=== PATIENT | male | born 1950 | race African-American/Black ===

== ENCOUNTER 2017-05-03 11:21 | Emergency (ER) | payer MEDICARE, BC ==
[~2017-05-03] VITALS: Ht 175.3 cm; Wt 90.0 kg
[2017-05-03] MEDS ORDERED: FAMOTIDINE 20MG TABLET PO ONE (16:15)
[2017-05-03 16:33] VITALS: BP 137/81
== END 2017-05-03 17:11 | disposition home or self-care (01) ==
LOC: ER 12:33
DX: R10.13 Epigastric pain (principal); E11.9 Type 2 diabetes mellitus without complications; I10 Essential (primary) hypertension; Z88.5 Allergy status to narcotic agent
CPT/HCPCS: 99283

== ENCOUNTER 2017-06-07 13:25 | Emergency (ER) | payer MEDICARE, BC ==
[~2017-06-07] VITALS: Ht 172.7 cm; Wt 80.0 kg
[2017-06-07] MEDS ORDERED: FAMOTIDINE 20MG/2ML VIAL IV STA (14:53)
[2017-06-07] MEDS ORDERED: SODIUM CHLORIDE 0.9% 1,000 ML IV ONE (14:53)
[2017-06-07] MEDS ORDERED: MAGNESIUM/ALUMINUM HYDROXIDE/SIMETHICONE 30ML UDC PO STA (14:53)
[2017-06-07] MEDS ORDERED: ONDANSETRON HCL 4MG/2ML VIAL IV STA (14:53)
[2017-06-07 15:15] LABS: CHLORIDE 99 mEq/L (98-107)
[2017-06-07 15:16] LABS: BASOPHILS % 0.5 % (0.0-2.0); EOSINOPHILS % 3.5 % (0.0-5.0); HEMATOCRIT. 40.2 % (42.0-52.0); HEMOGLOBIN. 13.7 g/dL (14.0-18.0); MEAN CORPUSCULAR HEMOGLOBIN 33.8 pg (28.0-32.0); MEAN CORPUSCULAR VOLUME 99.4 fL (80.0-94.0); MEAN PLATELET VOLUME 8.4 fl (7.4-10.4); MONOCYTES % 6.3 % (2.0-8.0); NEUTROPHILS % 75.7 % (40.0-76.0); PLATELET 157 x1000/uL (130-400); RED BLOOD CELL COUNT 4.04 mill/uL (4.7-6.1); RED CELL DISTRIBUTION WIDTH 14.4 % (11.6-14.6)
[2017-06-07 15:25] LABS: CLARITY URINE TURBID (CLEAR); COLOR URINE DARK YELLOW (YELLOW); KETONES URINE TRACE (NEGATIVE); LEUKOCYTE ESTERASE URINE 3+ (NEGATIVE); NITRITE URINE NEGATIVE (NEGATIVE); OCCULT BLOOD URINE 2+ (NEGATIVE); PROTEIN URINE 2+ (NEGATIVE); SPECIFIC GRAVITY URINE 1.017 (1.005-1.030)
[2017-06-07 15:48] LABS: PROTHROMBIN TIME 10.6 sec (9.4-11.6)
[2017-06-07 18:12] VITALS: BP 144/89
== END 2017-06-07 18:13 | disposition home or self-care (01) ==
LOC: ER 13:25
DX: N39.0 Urinary tract infection, site not specified (principal); K21.9 Gastro-esophageal reflux disease without esophagitis; R14.2 Eructation; D64.9 Anemia, unspecified; I12.9 Hypertensive chronic kidney disease with stage 1 through stage 4 chronic kidney disease, or unspecified chronic kidney disease; N18.9 Chronic kidney disease, unspecified; E11.22 Type 2 diabetes mellitus with diabetic chronic kidney disease; E11.65 Type 2 diabetes mellitus with hyperglycemia; Z88.5 Allergy status to narcotic agent; Z88.8 Allergy status to other drugs, medicaments and biological substances; Z86.73 Personal history of transient ischemic attack (TIA), and cerebral infarction without residual deficits; Z87.442 Personal history of urinary calculi
CPT/HCPCS: 36415; 80053; 81003; 83690; 84484; 85025; 85610; 87077; 87086; 87186; 93005; 96361; 96374; 96375; 99285; J2405; J3490; J7030

== ENCOUNTER 2017-09-28 13:23 | Emergency (ER) | payer MEDICARE, BC ==
[~2017-09-28] VITALS: Ht 175.3 cm; Wt 89.0 kg
[2017-09-28 14:45] LABS: HEMATOCRIT. 36.6 % (42.0-52.0); HEMOGLOBIN. 11.8 g/dL (14.0-18.0); MEAN CORPUSCULAR HEMOGLOBIN 31.2 pg (28.0-32.0); MEAN CORPUSCULAR VOLUME 96.5 fL (80.0-94.0); MEAN PLATELET VOLUME 8.4 fl (7.4-10.4); PLATELET 141 x1000/uL (130-400); RED BLOOD CELL COUNT 3.79 mill/uL (4.7-6.1)
[2017-09-28 14:51] LABS: CHLORIDE 101 mEq/L (98-107)
[2017-09-28] MEDS ORDERED: SODIUM CHLORIDE 0.9% 1,000 ML IV ONE (15:15)
[2017-09-28] MEDS ORDERED: NALOXONE HCL 0.4 MG/ML 1ML VIAL IV ONE (15:15)
[2017-09-28 15:31] LABS: PLATELET ESTIMATE NORMAL
[2017-09-28 18:04] LABS: CLARITY URINE CLOUDY (CLEAR); COLOR URINE YELLOW (YELLOW); KETONES URINE NEGATIVE (NEGATIVE); LEUKOCYTE ESTERASE URINE 3+ (NEGATIVE); NITRITE URINE NEGATIVE (NEGATIVE); OCCULT BLOOD URINE 3+ (NEGATIVE); PH URINE 6.5 (4.5-8.0); PROTEIN URINE TRACE (NEGATIVE); SPECIFIC GRAVITY URINE 1.008 (1.005-1.030)
[2017-09-28 18:08] VITALS: BP 127/78
[2017-09-28 18:15] LABS: *AMPHETAMINES SCREEN URINE NEGATIVE (NEGATIVE); *BARBITURATES SCREEN URINE NEGATIVE (NEGATIVE); *BENZODIAZEPINES SCREEN URINE NEGATIVE (NEGATIVE); *COCAINE SCREEN URINE NEGATIVE (NEGATIVE); METHADONE URINE SCREEN NEGATIVE (NEGATIVE); OPIATES URINE SCREEN NEGATIVE (NEGATIVE)
[2017-09-28 18:16] LABS: CANNABINOID URINE SCREEN PRESUMTIVE POSITIVE (NEGATIVE); PHENCYCLIDINE URINE SCREEN NEGATIVE (NEGATIVE)
== END 2017-09-28 19:41 | disposition home or self-care (01) ==
LOC: ER 13:50
DX: T40.7X1A Poisoning by cannabis (derivatives), accidental (unintentional), initial encounter (principal); E11.649 Type 2 diabetes mellitus with hypoglycemia without coma; I10 Essential (primary) hypertension; Z86.73 Personal history of transient ischemic attack (TIA), and cerebral infarction without residual deficits; Z90.49 Acquired absence of other specified parts of digestive tract; Z88.6 Allergy status to analgesic agent; Z88.5 Allergy status to narcotic agent; Y92.89 Other specified places as the place of occurrence of the external cause
CPT/HCPCS: 36415; 80053; 80305; 81003; 82962; 85025; 87086; 93005; 96361; 96374; 99285; G0482; J2310

== ENCOUNTER 2017-11-02 17:16 | Inpatient (IN) | payer MEDICARE, BC ==
[~2017-11-02] VITALS: Ht 171.4 cm; Wt 93.5 kg
[2017-11-02 18:44] LABS: CHLORIDE 98 mEq/L (98-107)
[2017-11-02 18:46] LABS: BASOPHILS % 0.5 % (0.0-2.0); EOSINOPHILS % 2.2 % (0.0-5.0); HEMATOCRIT. 36.5 % (42.0-52.0); HEMOGLOBIN. 12.1 g/dL (14.0-18.0); LYMPHOCYTES % 19.6 % (20.0-50.0); MEAN CORPUSCULAR HEMOGLOBIN 32.3 pg (28.0-32.0); MEAN CORPUSCULAR VOLUME 97.1 fL (80.0-94.0); MEAN PLATELET VOLUME 9.7 fl (7.4-10.4); MONOCYTES % 7.1 % (2.0-8.0); NEUTROPHILS % 70.6 % (40.0-76.0); PLATELET 162 x1000/uL (130-400); RED BLOOD CELL COUNT 3.76 mill/uL (4.7-6.1); RED CELL DISTRIBUTION WIDTH 14.4 % (11.6-14.6)
[2017-11-02 18:48] LABS: PARTIAL THROMBOPLASTIN TIME 29.9 sec (23.4-31.0); PROTHROMBIN TIME 10.4 sec (9.1-11.1)
[2017-11-02] MEDS ORDERED: NA PHOS,M-B/NA PHOS,DI-BA ENEMA 118ML PR PRN (19:15)
[2017-11-02] MEDS ORDERED: DOCUSATE SODIUM 100MG CAPSULE PO PRN (19:15)
[2017-11-02] MEDS ORDERED: CLONIDINE 0.1MG TABLET PO PRN (19:15)
[2017-11-02] MEDS ORDERED: IPRATROPIUM/ALBUTEROL 0.5-3(2.5)MG/3ML NEB INH PRN (19:15)
[2017-11-02] MEDS ORDERED: GUAIFENESIN 200MG/10ML SUGAR FREE UDC PO PRN (19:15)
[2017-11-02] MEDS ORDERED: NITROGLYCERIN 0.4MG TABLET SL SL PRN (19:15)
[2017-11-02] MEDS ORDERED: LORAZEPAM 0.5MG TABLET PO PRN (19:15)
[2017-11-02] MEDS ORDERED: MAGNESIUM/ALUMINUM HYDROXIDE/SIMETHICONE 30ML UDC PO PRN (19:15)
[2017-11-02] MEDS ORDERED: FUROSEMIDE 20MG/2ML VIAL IVP ONE (19:15)
[2017-11-02] MEDS ORDERED: ACETAMINOPHEN 325MG TABLET PO PRN (19:15)
[2017-11-02] MEDS ORDERED: ONDANSETRON HCL 4MG/2ML INJ IV PRN (19:15)
[2017-11-02] MEDS ORDERED: DIPHENHYDRAMINE 50MG/ML VIAL IV PRN (19:15)
[2017-11-02] MEDS ORDERED: TRAMADOL 50MG TABLET PO PRN (19:15)
[2017-11-02] MEDS ORDERED: FUROSEMIDE 20MG/2ML VIAL IVP NR (19:30)
[2017-11-02 20:06] LABS: TOTAL IRON BINDING CAPACITY 344 ug/dL (250-450)
[2017-11-02 20:25] LABS: FOLIC ACID (FOLATE) SERUM 8.6 ng/mL (>5.38)
[2017-11-02 20:56] LABS: CLARITY URINE CLOUDY (CLEAR); COLOR URINE YELLOW (YELLOW); KETONES URINE NEGATIVE (NEGATIVE); LEUKOCYTE ESTERASE URINE 3+ (NEGATIVE); NITRITE URINE POSITIVE (NEGATIVE); OCCULT BLOOD URINE 3+ (NEGATIVE); PROTEIN URINE 1+ (NEGATIVE); SPECIFIC GRAVITY URINE 1.012 (1.005-1.030)
[2017-11-02] MEDS ORDERED: FUROSEMIDE 40MG/4ML VIAL IVP SCH (21:00)
[2017-11-02 21:25] VITALS: BP 162/96
[2017-11-02 21:30] VITALS: BP 162/96
[2017-11-02] MEDS ORDERED: DEXTROSE 50% WATER 50ML SYRINGE IV PRN (22:30)
[2017-11-02] MEDS: FAMOTIDINE 20MG TABLET PO SCH (22:51)
[2017-11-02] MEDS: ZOLPIDEM TARTRATE 5MG TABLET PO PRN (22:51)
[2017-11-02] MEDS: ENOXAPARIN 80MG/0.8ML SYR SUBCUT SCH (22:51)
[2017-11-02] MEDS: ASCORBIC ACID 500 MG TABLET PO SCH (22:52)
[2017-11-02] MEDS: SPIRONOLACTONE 25MG TABLET PO SCH (22:52)
[2017-11-02 23:49] VITALS: BP 143/93
[2017-11-03 00:50] LABS: CREATINE KINASE MB FRACTION 1.4 ng/mL (0.5-3.6)
[2017-11-03 04:00] VITALS: BP 148/71
[2017-11-03] MEDS: INSULIN LISPRO 100 UNITS/ML SUBCUT SCH ×4 (06:13→21:53)
[2017-11-03] MEDS: BLOOD SUGAR DIAGNOSTIC STRIP TEST SCH ×4 (06:13→21:53)
[2017-11-03 08:00] VITALS: BP 136/84
[2017-11-03] MEDS ORDERED: FUROSEMIDE 40MG/4ML VIAL IVP SCH (09:00)
[2017-11-03] MEDS: ZINC SULFATE 220 MG ( 50 ) CAPSULE PO SCH (09:51)
[2017-11-03] MEDS: ASCORBIC ACID 500 MG TABLET PO SCH ×2 (09:51→21:52)
[2017-11-03] MEDS: SPIRONOLACTONE 25MG TABLET PO SCH ×2 (09:51→21:53)
[2017-11-03] MEDS: ASPIRIN 325MG EC TABLET PO SCH (09:51)
[2017-11-03] MEDS: ENOXAPARIN 80MG/0.8ML SYR SUBCUT SCH (09:52)
[2017-11-03] MEDS ORDERED: REGADENOSON 0.4 MG/5 ML IV ONE (10:30)
[2017-11-03] MEDS ORDERED: DEXT 5%/0.45% NACL 500ML 500 ML IV ONE (11:15)
[2017-11-03 11:36] LABS: BASOPHILS % 0.6 % (0.0-2.0); EOSINOPHILS % 1.7 % (0.0-5.0); HEMATOCRIT. 40.8 % (42.0-52.0); HEMOGLOBIN. 13.6 g/dL (14.0-18.0); LYMPHOCYTES % 13.4 % (20.0-50.0); MEAN CORPUSCULAR HEMOGLOBIN 32.3 pg (28.0-32.0); MEAN CORPUSCULAR VOLUME 96.9 fL (80.0-94.0); MEAN PLATELET VOLUME 8.7 fl (7.4-10.4); MONOCYTES % 6.3 % (2.0-8.0); PLATELET 159 x1000/uL (130-400); RED BLOOD CELL COUNT 4.21 mill/uL (4.7-6.1); RED CELL DISTRIBUTION WIDTH 14.6 % (11.6-14.6)
[2017-11-03 11:54] LABS: CHLORIDE 96 mEq/L (98-107)
[2017-11-03 12:00] VITALS: BP 162/98
[2017-11-03] MEDS: AMLODIPINE 2.5MG TABLET PO SCH ×2 (12:42→21:53)
[2017-11-03] MEDS ORDERED: FENTANYL CITRATE/PF 50MCG/ML 2ML VIAL ONE (15:38)
[2017-11-03] MEDS ORDERED: LIDOCAINE HCL 1% 10 MG/ML 10ML VIAL ONE (15:38)
[2017-11-03] MEDS ORDERED: MIDAZOLAM HCL 2 MG/2 ML VIAL ONE (15:38)
[2017-11-03] MEDS ORDERED: IODIXANOL 320MG/ML 200ML BOTTLE ONE (15:38)
[2017-11-03] MEDS ORDERED: NICARDIPINE 100MCG/ML 10ML VIAL (CATH LAB) IV ONE (15:57)
[2017-11-03] MEDS ORDERED: HEPARIN SODIUM 1,000 UNIT/1ML VIAL IV ONE (15:57)
[2017-11-03] MEDS ORDERED: NITROGLYCERIN 50MCG/ML 10ML VIAL (CATH LAB) IV ONE (15:57)
[2017-11-03] MEDS ORDERED: ACETAMINOPHEN 325MG TABLET PO PRN (16:00)
[2017-11-03] MEDS ORDERED: ATROPINE SULFATE 1MG/10ML SYR IV PRN (16:00)
[2017-11-03] MEDS: CHLORPROMAZINE HCL 10 MG TABLET PO SCH ×2 (17:14→21:57)
[2017-11-03] MEDS: LEVOFLOXACIN 500MG PREMIX 100 ML IV SCH (17:15)
[2017-11-03 18:00] VITALS: BP 145/86
[2017-11-03] MEDS: ONDANSETRON HCL 4MG/2ML INJ IV PRN (18:23)
[2017-11-03] MEDS: ZOLPIDEM TARTRATE 5MG TABLET PO PRN (21:53)
[2017-11-03] MEDS: FAMOTIDINE 20MG TABLET PO SCH (21:57)
[2017-11-03 22:01] VITALS: BP 159/93
[2017-11-03] MEDS ORDERED: CEFTRIAXONE 1 G PREMIX 50 ML IV SCH (23:00)
[2017-11-04] VITALS (13 sets, daily range): BP systolic 117–159; BP diastolic 50–108
[2017-11-04] MEDS: BLOOD SUGAR DIAGNOSTIC STRIP TEST SCH ×4 (06:09→21:20)
[2017-11-04 06:25] LABS: BASOPHILS % 0.5 % (0.0-2.0); EOSINOPHILS % 1.6 % (0.0-5.0); HEMATOCRIT. 40.1 % (42.0-52.0); HEMOGLOBIN. 13.7 g/dL (14.0-18.0); LYMPHOCYTES % 15.7 % (20.0-50.0); MEAN CORPUSCULAR HEMOGLOBIN 32.7 pg (28.0-32.0); MEAN CORPUSCULAR VOLUME 95.7 fL (80.0-94.0); MEAN PLATELET VOLUME 8.5 fl (7.4-10.4); MONOCYTES % 6.7 % (2.0-8.0); NEUTROPHILS % 75.5 % (40.0-76.0); PLATELET 138 x1000/uL (130-400); RED BLOOD CELL COUNT 4.19 mill/uL (4.7-6.1); RED CELL DISTRIBUTION WIDTH 14.2 % (11.6-14.6)
[2017-11-04 06:31] LABS: CHLORIDE 100 mEq/L (98-107)
[2017-11-04] MEDS: CHLORPROMAZINE HCL 10 MG TABLET PO SCH ×3 (06:35→21:19)
[2017-11-04] MEDS: ONDANSETRON HCL 4MG/2ML INJ IV PRN ×2 (06:36→10:45)
[2017-11-04 06:46] LABS: CREATINE KINASE 83 IU/L (39-308)
[2017-11-04 06:48] LABS: CREATINE KINASE MB FRACTION 1.2 ng/mL (0.5-3.6)
[2017-11-04] MEDS: INSULIN LISPRO 100 UNITS/ML SUBCUT SCH ×4 (07:20→21:20)
[2017-11-04] MEDS: ZINC SULFATE 220 MG ( 50 ) CAPSULE PO SCH (08:32)
[2017-11-04] MEDS: AMLODIPINE 2.5MG TABLET PO SCH (08:33)
[2017-11-04] MEDS: ASCORBIC ACID 500 MG TABLET PO SCH ×2 (08:33→21:19)
[2017-11-04] MEDS: SPIRONOLACTONE 25MG TABLET PO SCH ×2 (08:34→21:19)
[2017-11-04] MEDS: ASPIRIN 325MG EC TABLET PO SCH (08:34)
[2017-11-04] MEDS ORDERED: CLONIDINE 0.1MG TABLET PO PRN (09:00)
[2017-11-04] MEDS ORDERED: CLONIDINE 0.2MG TABLET PO PRN (09:00)
[2017-11-04] MEDS: AMLODIPINE 5MG TABLET PO SCH ×2 (11:46→21:19)
[2017-11-04] MEDS: CLOPIDOGREL 75MG TABLET PO SCH (11:46)
[2017-11-04] MEDS: LEVOFLOXACIN 500MG PREMIX 100 ML IV SCH (16:50)
[2017-11-04] MEDS ORDERED: ATORVASTATIN CALCIUM 20MG TABLET PO SCH (21:00)
[2017-11-04] MEDS: ZOLPIDEM TARTRATE 5MG TABLET PO PRN (21:19)
[2017-11-04] MEDS: FAMOTIDINE 20MG TABLET PO SCH (21:21)
[2017-11-05] VITALS (8 sets, daily range): BP systolic 115–158; BP diastolic 70–98
[2017-11-05] MEDS: ONDANSETRON HCL 4MG/2ML INJ IV PRN ×2 (05:31→10:10)
[2017-11-05] MEDS: CHLORPROMAZINE HCL 10 MG TABLET PO SCH (06:24)
[2017-11-05] MEDS: INSULIN LISPRO 100 UNITS/ML SUBCUT SCH ×2 (06:24→12:20)
[2017-11-05] MEDS: BLOOD SUGAR DIAGNOSTIC STRIP TEST SCH ×2 (06:24→11:50)
[2017-11-05] MEDS: ASPIRIN 325MG EC TABLET PO SCH (08:29)
[2017-11-05] MEDS: ZINC SULFATE 220 MG ( 50 ) CAPSULE PO SCH (08:29)
[2017-11-05] MEDS: CLOPIDOGREL 75MG TABLET PO SCH (08:30)
[2017-11-05] MEDS: AMLODIPINE 5MG TABLET PO SCH (08:30)
[2017-11-05] MEDS: SPIRONOLACTONE 25MG TABLET PO SCH (08:30)
[2017-11-05] MEDS: ASCORBIC ACID 500 MG TABLET PO SCH (08:30)
[2017-11-05] MEDS ORDERED: FAMO-135 MT (11:56)
== END 2017-11-05 12:40 | disposition home health service (06) | DRG 871 ==
LOC: ER 17:26 → 8WST 18:49 → EDBEDREQ 18:56 → SUPCPDRO 19:12 → ENRESERV 20:19 → 3WST 11-03 17:12
PROVIDERS: ADMIT Internal Medicine; ATTEND Internal Medicine
PROC: 4A023N7 Measurement of Cardiac Sampling and Pressure, Left Heart, Percutaneous Approach (ICD-10-PCS; principal; 2017-11-03)
PROC: B2111ZZ Fluoroscopy of Multiple Coronary Arteries using Low Osmolar Contrast (ICD-10-PCS; 2017-11-03)
PROC: B2151ZZ Fluoroscopy of Left Heart using Low Osmolar Contrast (ICD-10-PCS; 2017-11-03)
DX: A41.9 Sepsis, unspecified organism (principal); J96.00 Acute respiratory failure, unspecified whether with hypoxia or hypercapnia; I50.41 Acute combined systolic (congestive) and diastolic (congestive) heart failure; I13.0 Hypertensive heart and chronic kidney disease with heart failure and stage 1 through stage 4 chronic kidney disease, or unspecified chronic kidney disease; N39.0 Urinary tract infection, site not specified; I48.92 Unspecified atrial flutter; N17.9 Acute kidney failure, unspecified; N18.9 Chronic kidney disease, unspecified; D63.8 Anemia in other chronic diseases classified elsewhere; E11.22 Type 2 diabetes mellitus with diabetic chronic kidney disease; E11.65 Type 2 diabetes mellitus with hyperglycemia; J44.9 Chronic obstructive pulmonary disease, unspecified; I25.10 Atherosclerotic heart disease of native coronary artery without angina pectoris; E78.00 Pure hypercholesterolemia, unspecified; I25.5 Ischemic cardiomyopathy; K59.00 Constipation, unspecified; F41.9 Anxiety disorder, unspecified; H54.61 Unqualified visual loss, right eye, normal vision left eye; G47.00 Insomnia, unspecified; Z95.5 Presence of coronary angioplasty implant and graft; I69.398 Other sequelae of cerebral infarction; Z88.6 Allergy status to analgesic agent; Z87.442 Personal history of urinary calculi; Z87.891 Personal history of nicotine dependence; Z90.49 Acquired absence of other specified parts of digestive tract; I25.2 Old myocardial infarction
CPT/HCPCS: 36415; 71045; 80048; 80053; 80061; 81003; 82550; 82553; 82607; 82746; 82962; 83036; 83540; 83550; 83735; 83880; 84443; 84484; 85025; 85379; 85610; 85730; 87086; 93005; 93306; 93458; 93970; 96374; 97162; 99285; C1769; C1887; C1893; J0696; J1644; J1650; J1815; J1940; J1956; J2250; J2405; J3010; J3490; Q0161; Q9967

== ENCOUNTER 2017-11-24 21:21 | Inpatient (IN) | payer MEDICARE, BC ==
[~2017-11-24] VITALS: Ht 167.6 cm; Wt 90.8 kg
[~2017-11-24 21:21] MED LIST: FAMO-135 PO
[2017-11-24] MEDS ORDERED: MAGNESIUM/ALUMINUM HYDROXIDE/SIMETHICONE 30ML UDC PO STA (22:59)
[2017-11-24] MEDS ORDERED: VISCOUS LIDOCAINE 2% 15 ML UDC PO STA (22:59)
[2017-11-24] MEDS ORDERED: FAMOTIDINE 20MG TABLET PO ONE (23:00)
[2017-11-24 23:24] LABS: BASOPHILS % 0.5 % (0.0-2.0); EOSINOPHILS % 3.5 % (0.0-5.0); HEMOGLOBIN. 12.4 g/dL (14.0-18.0); LYMPHOCYTES % 17.1 % (20.0-50.0); MEAN CORPUSCULAR HEMOGLOBIN 32.2 pg (28.0-32.0); MEAN CORPUSCULAR VOLUME 98.6 fL (80.0-94.0); MEAN PLATELET VOLUME 8.3 fl (7.4-10.4); MONOCYTES % 7.7 % (2.0-8.0); NEUTROPHILS % 71.2 % (40.0-76.0); PLATELET 136 x1000/uL (130-400); RED BLOOD CELL COUNT 3.86 mill/uL (4.7-6.1); RED CELL DISTRIBUTION WIDTH 14.5 % (11.6-14.6)
[2017-11-24 23:27] LABS: CHLORIDE 97 mEq/L (98-107)
[2017-11-24] MEDS ORDERED: ASPIRIN 325MG TABLET PO NR (23:45)
[2017-11-25 02:45] VITALS: BP 155/101
[2017-11-25 04:17] VITALS: BP 135/80
[2017-11-25] MEDS ORDERED: ACETAMINOPHEN 325MG TABLET PO PRN (06:45)
[2017-11-25] MEDS ORDERED: ONDANSETRON HCL 4MG/2ML INJ IV PRN (06:45)
[2017-11-25] MEDS ORDERED: DEXTROSE 50% WATER 50ML SYRINGE IV PRN (06:45)
[2017-11-25] MEDS ORDERED: CLONIDINE 0.1MG TABLET PO PRN (06:45)
[2017-11-25] MEDS ORDERED: CHLORPROMAZINE HCL 25MG/1ML AMP IM PRN (07:15)
[2017-11-25] MEDS ORDERED: ONDANSETRON 4MG ODT PO PRN (07:15)
[2017-11-25] MEDS: BLOOD SUGAR DIAGNOSTIC STRIP TEST SCH ×4 (07:20→21:16)
[2017-11-25 07:44] VITALS: BP 139/95
[2017-11-25] MEDS ORDERED: NITROGLYCERIN 0.4MG TABLET SL SL PRN ×2 (08:00→08:30)
[2017-11-25] MEDS ORDERED: NA PHOS,M-B/NA PHOS,DI-BA ENEMA 118ML PR PRN (08:00)
[2017-11-25] MEDS ORDERED: MAGNESIUM/ALUMINUM HYDROXIDE/SIMETHICONE 30ML UDC PO PRN (08:00)
[2017-11-25] MEDS ORDERED: GUAIFENESIN 200MG/10ML SUGAR FREE UDC PO PRN (08:00)
[2017-11-25] MEDS ORDERED: IPRATROPIUM/ALBUTEROL 0.5-3(2.5)MG/3ML NEB INH PRN (08:00)
[2017-11-25] MEDS ORDERED: TRAMADOL 50MG TABLET PO PRN (08:00)
[2017-11-25] MEDS: METOCLOPRAMIDE HCL 5MG TABLET PO SCH ×4 (08:38→21:06)
[2017-11-25] MEDS: ENOXAPARIN 30MG/0.3ML SYR SUBCUT SCH (08:39)
[2017-11-25] MEDS: ASCORBIC ACID 500 MG TABLET PO SCH ×2 (08:39→21:06)
[2017-11-25] MEDS: FUROSEMIDE 40MG/4ML VIAL IVP SCH ×2 (08:39→21:06)
[2017-11-25] MEDS: PANTOPRAZOLE SODIUM 40 MG/VIAL IV SCH (08:39)
[2017-11-25] MEDS: INSULIN LISPRO 100 UNITS/ML SUBCUT SCH ×4 (08:56→21:00)
[2017-11-25] MEDS ORDERED: ENOXAPARIN 40MG/0.4ML SYR SUBCUT SCH (09:00)
[2017-11-25] MEDS ORDERED: DOCUSATE SODIUM 100MG CAPSULE PO PRN (09:00)
[2017-11-25] MEDS ORDERED: ASCORBIC ACID 500 MG TABLET PO SCH (09:00)
[2017-11-25] MEDS: CLOPIDOGREL 75MG TABLET PO SCH (09:52)
[2017-11-25] MEDS: CARVEDILOL 3.125 MG TABLET PO SCH ×2 (09:53→21:06)
[2017-11-25] MEDS: AMLODIPINE 10MG TABLET PO SCH (09:53)
[2017-11-25 12:00] VITALS: BP 135/94
[2017-11-25 16:00] VITALS: BP 114/81
[2017-11-25 16:39] LABS: CREATINE KINASE MB FRACTION 2.2 ng/mL (0.5-3.6)
[2017-11-25] MEDS: ERYTHROMYCIN 250MG TABLET PO SCH ×2 (17:20→21:07)
[2017-11-25 20:00] VITALS: BP 133/85
[2017-11-25] MEDS: ZOLPIDEM TARTRATE 5MG TABLET PO PRN (22:39)
[2017-11-26] VITALS: BP 130/80
[2017-11-26 00:14] LABS: CREATINE KINASE MB FRACTION 1.8 ng/mL (0.5-3.6)
[2017-11-26 04:00] VITALS: BP 143/99
[2017-11-26] MEDS: ERYTHROMYCIN 250MG TABLET PO SCH (06:10)
[2017-11-26] MEDS: BLOOD SUGAR DIAGNOSTIC STRIP TEST SCH ×4 (07:20→20:23)
[2017-11-26 08:00] VITALS: BP 133/91
[2017-11-26] MEDS: FUROSEMIDE 40MG/4ML VIAL IVP SCH (08:33)
[2017-11-26] MEDS: PANTOPRAZOLE SODIUM 40 MG/VIAL IV SCH (08:33)
[2017-11-26] MEDS: ASCORBIC ACID 500 MG TABLET PO SCH ×2 (09:18→20:46)
[2017-11-26] MEDS: CARVEDILOL 3.125 MG TABLET PO SCH ×2 (09:18→20:46)
[2017-11-26] MEDS: METOCLOPRAMIDE HCL 5MG TABLET PO SCH ×4 (09:18→20:47)
[2017-11-26] MEDS: AMLODIPINE 10MG TABLET PO SCH (09:18)
[2017-11-26] MEDS: CLOPIDOGREL 75MG TABLET PO SCH (09:18)
[2017-11-26] MEDS: ENOXAPARIN 30MG/0.3ML SYR SUBCUT SCH (09:19)
[2017-11-26] MEDS: INSULIN LISPRO 100 UNITS/ML SUBCUT SCH ×4 (09:41→20:45)
[2017-11-26] MEDS: ASPIRIN 81MG TABLET PO SCH (12:49)
[2017-11-26 16:00] VITALS: BP 135/87
[2017-11-26 20:00] VITALS: BP 122/86
[2017-11-26] MEDS: ZOLPIDEM TARTRATE 5MG TABLET PO PRN (20:47)
[2017-11-26] MEDS ORDERED: ATORVASTATIN CALCIUM 20MG TABLET PO SCH (21:00)
[2017-11-26 23:55] VITALS: BP 118/86
[2017-11-27 04:00] VITALS: BP 135/95
[2017-11-27] MEDS: BLOOD SUGAR DIAGNOSTIC STRIP TEST SCH (06:03)
[2017-11-27] MEDS: METOCLOPRAMIDE HCL 5MG TABLET PO SCH (06:09)
[2017-11-27 06:28] LABS: CHLORIDE 100 mEq/L (98-107)
[2017-11-27 06:36] LABS: BASOPHILS % 0.6 % (0.0-2.0); EOSINOPHILS % 2.8 % (0.0-5.0); HEMATOCRIT. 38.4 % (42.0-52.0); LYMPHOCYTES % 13.1 % (20.0-50.0); MEAN CORPUSCULAR HEMOGLOBIN 33.2 pg (28.0-32.0); MEAN CORPUSCULAR VOLUME 97.9 fL (80.0-94.0); MEAN PLATELET VOLUME 8.7 fl (7.4-10.4); MONOCYTES % 7.6 % (2.0-8.0); NEUTROPHILS % 75.9 % (40.0-76.0); PLATELET 145 x1000/uL (130-400); RED BLOOD CELL COUNT 3.92 mill/uL (4.7-6.1); RED CELL DISTRIBUTION WIDTH 14.8 % (11.6-14.6)
[2017-11-27] MEDS: PANTOPRAZOLE SODIUM 40 MG/VIAL IV SCH (08:11)
[2017-11-27] MEDS: INSULIN LISPRO 100 UNITS/ML SUBCUT SCH (08:19)
[2017-11-27] MEDS: CLOPIDOGREL 75MG TABLET PO SCH (08:20)
[2017-11-27] MEDS: ASCORBIC ACID 500 MG TABLET PO SCH (08:20)
[2017-11-27] MEDS: ASPIRIN 81MG TABLET PO SCH (08:20)
[2017-11-27] MEDS: AMLODIPINE 10MG TABLET PO SCH (08:21)
[2017-11-27] MEDS: CARVEDILOL 3.125 MG TABLET PO SCH (08:21)
[2017-11-27] MEDS: ENOXAPARIN 30MG/0.3ML SYR SUBCUT SCH (08:21)
[2017-11-27] MEDS ORDERED: FUROSEMIDE 40MG/4ML VIAL IVP SCH (09:00)
[2017-11-27 11:00] VITALS: BP 100/61
== END 2017-11-27 12:05 | disposition home health service (06) | DRG 280 ==
LOC: ER 21:21 → 6WST 11-25 00:33 → ENRESERV 11-25 01:38
PROVIDERS: ADMIT Internal Medicine; ATTEND Internal Medicine
DX: I21.4 Non-ST elevation (NSTEMI) myocardial infarction (principal); N17.0 Acute kidney failure with tubular necrosis; I42.9 Cardiomyopathy, unspecified; K29.70 Gastritis, unspecified, without bleeding; E11.43 Type 2 diabetes mellitus with diabetic autonomic (poly)neuropathy; E78.00 Pure hypercholesterolemia, unspecified; H54.61 Unqualified visual loss, right eye, normal vision left eye; I11.0 Hypertensive heart disease with heart failure; I25.10 Atherosclerotic heart disease of native coronary artery without angina pectoris; I50.9 Heart failure, unspecified; Z79.4 Long term (current) use of insulin; Z79.899 Other long term (current) drug therapy; Z86.73 Personal history of transient ischemic attack (TIA), and cerebral infarction without residual deficits; Z87.442 Personal history of urinary calculi; K31.84 Gastroparesis; Z87.891 Personal history of nicotine dependence
CPT/HCPCS: 36415; 71045; 80048; 80053; 82550; 82553; 82962; 83036; 83690; 84484; 85025; 93005; 99285; C9113; J1650; J1815; J1940; J7030; J8597

== ENCOUNTER 2018-07-03 19:22 | Inpatient (IN) | payer MEDICARE, BC, OTHER ==
[~2018-07-03] VITALS: Ht 172.7 cm; Wt 86.2 kg
[2018-07-03 20:58] LABS: HEMATOCRIT. 43.1 % (42.0-52.0); HEMOGLOBIN. 14.3 g/dL (14.0-18.0); MEAN CORPUSCULAR HEMOGLOBIN 32.2 pg (28.0-32.0); MEAN CORPUSCULAR VOLUME 96.8 fL (80.0-94.0); MEAN PLATELET VOLUME 7.8 fl (7.4-10.4); PLATELET 155 x1000/uL (130-400); RED BLOOD CELL COUNT 4.46 mill/uL (4.7-6.1)
[2018-07-03 21:05] LABS: CHLORIDE 104 mEq/L (98-107)
[2018-07-03 21:14] LABS: PLATELET ESTIMATE NORMAL
[2018-07-03 22:09] LABS: *AMPHETAMINES SCREEN URINE NEGATIVE (NEGATIVE); *BARBITURATES SCREEN URINE NEGATIVE (NEGATIVE); *BENZODIAZEPINES SCREEN URINE NEGATIVE (NEGATIVE); *COCAINE SCREEN URINE NEGATIVE (NEGATIVE); METHADONE URINE SCREEN NEGATIVE (NEGATIVE)
[2018-07-03 22:10] LABS: CANNABINOID URINE SCREEN PRESUMTIVE POSITIVE (NEGATIVE); OPIATES URINE SCREEN NEGATIVE (NEGATIVE); PHENCYCLIDINE URINE SCREEN NEGATIVE (NEGATIVE)
[2018-07-04] MEDS ORDERED: ACETAMINOPHEN 325MG TABLET PO PRN
[2018-07-04] MEDS ORDERED: LORAZEPAM 0.5MG TABLET PO PRN
[2018-07-04] MEDS ORDERED: CLONIDINE 0.1MG TABLET PO PRN
[2018-07-04] MEDS ORDERED: DEXTROSE 50% WATER 50ML SYRINGE IV PRN
[2018-07-04] MEDS ORDERED: ONDANSETRON HCL 4MG/2ML INJ IV PRN
[2018-07-04] MEDS ORDERED: GUAIFENESIN 200MG/10ML SUGAR FREE UDC PO PRN
[2018-07-04] MEDS ORDERED: IPRATROPIUM/ALBUTEROL 0.5-3(2.5)MG/3ML NEB INH PRN
[2018-07-04] MEDS ORDERED: DIPHENHYDRAMINE 50MG/ML VIAL IV PRN
[2018-07-04] MEDS ORDERED: ASPIRIN 81MG TABLET PO ONE (00:30)
[2018-07-04] MEDS ORDERED: MVI, ADULT NO.1 10 ML, FOLIC ACID 1 MG, THIAMINE HCL 100 MG in SODIUM CHLORIDE 0.9% 1,0... IV SCH ×4 (02:00)
[2018-07-04] MEDS ORDERED: OMEPRAZOLE 20MG CAPSULE EXTENDED RELEASE PO SCH (07:50)
[2018-07-04 09:25] VITALS: BP 150/94
[2018-07-04 10:03] VITALS: BP 150/94
[2018-07-04] MEDS: HYDRALAZINE HCL 50MG TABLET PO SCH ×3 (10:04→21:32)
[2018-07-04] MEDS: CARVEDILOL 3.125 MG TABLET PO SCH ×2 (10:05→21:32)
[2018-07-04] MEDS: ENOXAPARIN 40MG/0.4ML SYR SUBCUT SCH (10:05)
[2018-07-04 12:00] VITALS: BP 117/80
[2018-07-04] MEDS: BLOOD SUGAR DIAGNOSTIC STRIP TEST SCH ×3 (12:00→21:31)
[2018-07-04] MEDS: MAGNESIUM/ALUMINUM HYDROXIDE/SIMETHICONE 30ML UDC PO PRN ×2 (12:00→17:26)
[2018-07-04] MEDS: INSULIN LISPRO 100 UNITS/ML SUBCUT SCH ×3 (12:04→21:00)
[2018-07-04] MEDS: FAMOTIDINE 20MG/2ML VIAL IV SCH (13:54)
[2018-07-04 16:00] VITALS: BP 117/78
[2018-07-04 20:00] VITALS: BP 118/76
[2018-07-04] MEDS ORDERED: ATORVASTATIN CALCIUM 20MG TABLET PO SCH (21:00)
[2018-07-04] MEDS ORDERED: TEMAZEPAM 15MG CAPSULE PO PRN (22:00)
[2018-07-05] VITALS: BP 114/79
[2018-07-05 04:00] VITALS: BP 131/88
[2018-07-05] MEDS: HYDRALAZINE HCL 50MG TABLET PO SCH ×2 (05:44→14:00)
[2018-07-05] MEDS: BLOOD SUGAR DIAGNOSTIC STRIP TEST SCH ×2 (06:37→12:40)
[2018-07-05] MEDS: INSULIN LISPRO 100 UNITS/ML SUBCUT SCH ×3 (06:37→12:41)
[2018-07-05 08:33] VITALS: BP 121/79
[2018-07-05] MEDS: CARVEDILOL 3.125 MG TABLET PO SCH (09:17)
[2018-07-05] MEDS: ENOXAPARIN 40MG/0.4ML SYR SUBCUT SCH (09:18)
[2018-07-05] MEDS: FAMOTIDINE 20MG/2ML VIAL IV SCH (09:20)
[2018-07-05 12:00] VITALS: BP 137/98
== END 2018-07-05 15:40 | disposition home or self-care (01) | DRG 637 ==
LOC: ER 20:33 → 8WST 07-04 00:19 → EDBEDREQTM 07-04 00:21 → EDBEDREQDT 07-04 00:21 → EDBEDREQ 07-04 00:21 → ENRESERV 07-04 07:36 → 7WST 07-05 07:55
PROVIDERS: ADMIT Internal Medicine; ATTEND Internal Medicine
DX: E11.649 Type 2 diabetes mellitus with hypoglycemia without coma (principal); G93.41 Metabolic encephalopathy; I13.0 Hypertensive heart and chronic kidney disease with heart failure and stage 1 through stage 4 chronic kidney disease, or unspecified chronic kidney disease; I25.10 Atherosclerotic heart disease of native coronary artery without angina pectoris; I50.9 Heart failure, unspecified; F12.90 Cannabis use, unspecified, uncomplicated; E78.00 Pure hypercholesterolemia, unspecified; R07.9 Chest pain, unspecified; R14.2 Eructation; N18.9 Chronic kidney disease, unspecified; K21.9 Gastro-esophageal reflux disease without esophagitis; E11.22 Type 2 diabetes mellitus with diabetic chronic kidney disease; Z87.442 Personal history of urinary calculi; Z86.73 Personal history of transient ischemic attack (TIA), and cerebral infarction without residual deficits; Z88.8 Allergy status to other drugs, medicaments and biological substances; Z88.5 Allergy status to narcotic agent; Z90.49 Acquired absence of other specified parts of digestive tract
CPT/HCPCS: 36415; 71045; 80305; 82962; 83735; 83880; 84484; 93005; 99285; J1650; J3411; J3490; J7030

== ENCOUNTER 2018-07-11 20:18 | Inpatient (IN) | payer MEDICARE, BC, OTHER ==
[~2018-07-11] VITALS: Ht 172.7 cm; Wt 89.4 kg
[2018-07-11] MEDS ORDERED: SODIUM CHLORIDE 0.9% 1,000 ML IV ONE (21:11)
[2018-07-11 21:27] LABS: BASOPHILS % 0.4 % (0.0-2.0); EOSINOPHILS % 1.3 % (0.0-5.0); HEMATOCRIT. 41.7 % (42.0-52.0); HEMOGLOBIN. 13.7 g/dL (14.0-18.0); LYMPHOCYTES % 13.7 % (20.0-50.0); MEAN CORPUSCULAR HEMOGLOBIN 32.1 pg (28.0-32.0); MEAN CORPUSCULAR VOLUME 97.5 fL (80.0-94.0); MEAN PLATELET VOLUME 8.4 fl (7.4-10.4); MONOCYTES % 6.4 % (2.0-8.0); NEUTROPHILS % 78.2 % (40.0-76.0); PLATELET 123 x1000/uL (130-400); RED BLOOD CELL COUNT 4.28 mill/uL (4.7-6.1); RED CELL DISTRIBUTION WIDTH 14.6 % (11.6-14.6)
[2018-07-11 21:34] LABS: CHLORIDE 108 mEq/L (98-107)
[2018-07-11 21:38] LABS: ETHANOL BLOOD < 10 mg/dL
[2018-07-11 21:41] LABS: LDL CHOLESTEROL 43 mg/dL (5-100)
[2018-07-11 21:42] LABS: CREATINE KINASE 81 IU/L (39-308)
[2018-07-11 22:22] LABS: CLARITY URINE CLOUDY (CLEAR); COLOR URINE YELLOW (YELLOW); KETONES URINE TRACE (NEGATIVE); LEUKOCYTE ESTERASE URINE 3+ (NEGATIVE); NITRITE URINE POSITIVE (NEGATIVE); OCCULT BLOOD URINE 3+ (NEGATIVE); PH URINE 5.5 (4.5-8.0); PROTEIN URINE 2+ (NEGATIVE); SPECIFIC GRAVITY URINE 1.015 (1.005-1.030)
[2018-07-11] MEDS ORDERED: PERMETHRIN 5% CREAM 60GM TOP ONE (22:30)
[2018-07-11] MEDS ORDERED: ASPIRIN 81MG TABLET PO ONE (22:30)
[2018-07-11 22:34] LABS: *AMPHETAMINES SCREEN URINE NEGATIVE (NEGATIVE); *BARBITURATES SCREEN URINE NEGATIVE (NEGATIVE); *BENZODIAZEPINES SCREEN URINE NEGATIVE (NEGATIVE); *COCAINE SCREEN URINE NEGATIVE (NEGATIVE); METHADONE URINE SCREEN NEGATIVE (NEGATIVE); OPIATES URINE SCREEN NEGATIVE (NEGATIVE)
[2018-07-11 22:35] LABS: CANNABINOID URINE SCREEN PRESUMTIVE POSITIVE (NEGATIVE); PHENCYCLIDINE URINE SCREEN NEGATIVE (NEGATIVE)
[2018-07-11 22:43] LABS: INR 1.1; PROTHROMBIN TIME 11.1 sec (9.6-11.0)
[2018-07-12 00:10] VITALS: BP 170/100
[2018-07-12] MEDS ORDERED: ACETAMINOPHEN 325MG TABLET PO PRN (01:45)
[2018-07-12] MEDS ORDERED: MAGNESIUM/ALUMINUM HYDROXIDE/SIMETHICONE 30ML UDC PO PRN (01:45)
[2018-07-12] MEDS ORDERED: DIPHENHYDRAMINE 50MG/ML VIAL IV PRN (01:45)
[2018-07-12] MEDS ORDERED: GUAIFENESIN 200MG/10ML SUGAR FREE UDC PO PRN (01:45)
[2018-07-12 04:00] VITALS: BP 169/94
[2018-07-12] MEDS: CLONIDINE 0.1MG TABLET PO PRN (06:05)
[2018-07-12] MEDS: SODIUM CHLORIDE 0.9% INJ 3ML FLUSH IVF SCH ×3 (06:05→20:59)
[2018-07-12] MEDS: HYDRALAZINE HCL 50MG TABLET PO SCH ×3 (06:05→20:55)
[2018-07-12 08:00] VITALS: BP 118/83
[2018-07-12] MEDS: OMEPRAZOLE 20MG CAPSULE EXTENDED RELEASE PO SCH ×2 (11:06→20:54)
[2018-07-12] MEDS: ASPIRIN 81MG EC TABLET PO SCH (11:07)
[2018-07-12] MEDS: CARVEDILOL 3.125 MG TABLET PO SCH ×2 (11:07→20:55)
[2018-07-12] MEDS: ENOXAPARIN 40MG/0.4ML SYR SUBCUT SCH (11:12)
[2018-07-12 12:00] VITALS: BP 139/82
[2018-07-12 16:00] VITALS: BP 137/89
[2018-07-12 20:00] VITALS: BP 114/75
[2018-07-13] VITALS: BP 118/85
[2018-07-13 04:00] VITALS: BP 147/85
[2018-07-13 08:00] VITALS: BP 135/75
[2018-07-13] MEDS: ASPIRIN 81MG EC TABLET PO SCH (08:50)
[2018-07-13] MEDS: CARVEDILOL 3.125 MG TABLET PO SCH ×2 (08:51→22:05)
[2018-07-13] MEDS: OMEPRAZOLE 20MG CAPSULE EXTENDED RELEASE PO SCH ×2 (08:51→22:05)
[2018-07-13] MEDS: ENOXAPARIN 40MG/0.4ML SYR SUBCUT SCH (08:52)
[2018-07-13 12:01] VITALS: BP 133/93
[2018-07-13 16:00] VITALS: BP 149/81
[2018-07-13] MEDS ORDERED: BACLOFEN 10MG TABLET PO NR (16:00)
[2018-07-13] MEDS: SODIUM CHLORIDE 0.45% 1,000 ML IV SCH (16:46)
[2018-07-13 20:00] VITALS: BP 119/87
[2018-07-13] MEDS: SODIUM CHLORIDE 0.9% INJ 3ML FLUSH IVF SCH (22:04)
[2018-07-13] MEDS: BACLOFEN 10MG TABLET PO SCH (22:05)
[2018-07-13] MEDS: HYDRALAZINE HCL 50MG TABLET PO SCH (22:05)
[2018-07-14] VITALS: BP 131/88
[2018-07-14 04:00] VITALS: BP 159/106
[2018-07-14] MEDS: SODIUM CHLORIDE 0.45% 1,000 ML IV SCH (04:32)
[2018-07-14] MEDS: SODIUM CHLORIDE 0.9% INJ 3ML FLUSH IVF SCH (05:35)
[2018-07-14] MEDS: BACLOFEN 10MG TABLET PO SCH ×2 (05:36→14:28)
[2018-07-14] MEDS: CLONIDINE 0.1MG TABLET PO PRN ×2 (05:36→17:32)
[2018-07-14] MEDS: OMEPRAZOLE 20MG CAPSULE EXTENDED RELEASE PO SCH (05:36)
[2018-07-14] MEDS: HYDRALAZINE HCL 50MG TABLET PO SCH (05:36)
[2018-07-14 07:53] LABS: CHLORIDE 105 mEq/L (98-107)
[2018-07-14 08:00] VITALS: BP 106/72
[2018-07-14] MEDS: ASPIRIN 81MG EC TABLET PO SCH (08:44)
[2018-07-14] MEDS: CARVEDILOL 3.125 MG TABLET PO SCH (08:45)
[2018-07-14] MEDS: ENOXAPARIN 40MG/0.4ML SYR SUBCUT SCH (08:45)
[2018-07-14 12:00] VITALS: BP 158/96
[2018-07-14 12:26] VITALS: BP 116/72
[2018-07-14] MEDS ORDERED: CHLORPROMAZINE HCL 25 MG TABLET PO SCH (17:00)
== END 2018-07-14 17:56 | DRG 73 ==
LOC: ER 20:18 → 7WST 22:27 → EDBEDREQ 22:29 → EDBEDREQTM 22:29 → EDBEDREQSVC 22:29 → ENRESERV 23:29
PROVIDERS: ADMIT Internal Medicine; ATTEND Internal Medicine
DX: G90.8 Other disorders of autonomic nervous system (principal); G93.41 Metabolic encephalopathy; I13.0 Hypertensive heart and chronic kidney disease with heart failure and stage 1 through stage 4 chronic kidney disease, or unspecified chronic kidney disease; I50.22 Chronic systolic (congestive) heart failure; E11.22 Type 2 diabetes mellitus with diabetic chronic kidney disease; E78.00 Pure hypercholesterolemia, unspecified; F12.90 Cannabis use, unspecified, uncomplicated; N18.9 Chronic kidney disease, unspecified; E86.0 Dehydration; R14.2 Eructation; I25.10 Atherosclerotic heart disease of native coronary artery without angina pectoris; I25.2 Old myocardial infarction; Z86.73 Personal history of transient ischemic attack (TIA), and cerebral infarction without residual deficits; Z87.442 Personal history of urinary calculi; Z88.5 Allergy status to narcotic agent; Z88.8 Allergy status to other drugs, medicaments and biological substances
CPT/HCPCS: 36415; 70551; 71045; 80048; 80305; 80320; 82550; 82553; 82962; 83036; 83721; 83880; 84484; 92610; 93005; 96360; 96372; 97162; 97166; 99285; J1650; J7030; G0480